=== PATIENT | female | born 1985 ===

== ENCOUNTER 2016-07-31 21:07 | Emergency (ER) | payer OTHER ==
[2016-07-31 21:46] VITALS: BP 123/73; PULSE 94; RESP 16; TEMP 99.7; O2SAT 100
[2016-07-31] MEDS ORDERED: Lactated Ringer's 1,000 ML IV STA (22:27)
[2016-07-31] MEDS ORDERED: Dextrose 5%/Lactated Ringer's 1,000 ML IV SCH (22:30)
[2016-07-31 22:44] LABS: BASO % 0.4 % (0.0-2.0); EOS % 0.1 % (0.0-4.0); LYMPH # 2.9 K/uL (1.0-4.3); LYMPH % 24.6 % (20.0-40.0); MEAN CELL VOLUME 88.9 fl (81.0-99.0); MEAN CORPUSCULAR HEMOGLOBIN 29.7 pg (27.0-31.0); MEAN CORPUSCULAR HGB CONC 33.4 g/dL (33.0-37.0); MEAN PLATELET VOLUME 10.6 fl (7.2-11.7); MONO # 0.9 K/uL (0.0-0.8); MONO % 7.7 % (0.0-10.0); NEUT # 7.8 K/uL (1.8-7.0); NEUT % 67.2 % (50.0-75.0); RED CELL DISTRIBUTION WIDTH 13.6 % (11.5-14.5); WHITE BLOOD COUNT 11.7 K/uL (4.8-10.8)
[2016-07-31 23:03] LABS: ALB/GLOB RATIO 1.2 (1.0-2.1); ALKALINE PHOSPHATASE 72 U/L (38-126); ALT/SGPT 36 U/L (9-52); AST/SGOT 31 U/L (14-36); BILIRUBIN,TOTAL 0.4 mg/dl (0.2-1.3); BLOOD UREA NITROGEN 10 mg/dl (7-17); CALCIUM 9.5 mg/dL (8.4-10.2); CARBON DIOXIDE 21 mmol/L (22-30); CHLORIDE 102 mmol/L (98-107); GFR AFRICAN-AMERICAN > 60; GLUCOSE,RANDOM 86 mg/dL (65-105); MAGNESIUM 1.9 MG/DL (1.6-2.3); PHOSPHOROUS 2.4 mg/dl (2.5-4.5); POTASSIUM 3.8 MMOL/L (3.6-5.0); SODIUM 140 mmol/l (132-148); TOTAL PROTEIN 7.9 G/DL (6.3-8.2)
[2016-07-31 23:48] LABS: THYROID STIMULATING HORMONE 3.06 mIU/ML (0.46-4.68)
--- NOTE | 2016-08-01 00:16 | ED PDOC ---
HPI:Nausea, Vomiting, Diarrhea Time Seen by Provider: 07/31/16 21:50 Chief Complaint (Nursing): ENT Problem Chief Complaint (Provider): unable to swallow Onset/Duration Of Symptoms: Sudden Onset (about an hour prior to arrival) Current Symptoms Are (Timing): Gone Now (lasted for 45 minutes) Quality Of Discomfort: denies: "Pain" Associated Symptoms: denies: Fever, Chills, Nausea, Vomiting Exacerbating Factors: None Alleviating Factors: None Additional Complaint(s): Pt had eaten dinner. Suddenly felt like she could not swallow her own saliva. However she did not have chest and she had dry mouth, not excessive secretions. She denies vomiting. Similar episode occurred about a week ago and resolved after 7 minutes. Was associated with some shortness of breath but she believes this may have been due to feeling anxious about the swallowing. Symptoms at this time have resolved. No h/o heartburn. Pt reports recent change in diet to lose weight, but not taking any supplements. Decreased calorie intake and decreased fatty foods. Past Medical History Reviewed: Historical Data, Nursing Documentation, Vital Signs Vital Signs: Last Vital Signs Temp 99.7 F H 07/31/16 21:35 Pulse 94 H 07/31/16 21:35 Resp 16 07/31/16 21:35 BP 123/73 07/31/16 21:35 Pulse Ox 100 07/31/16 21:35 - Medical History PMH: No Chronic Diseases - Surgical History Surgical History: No Surg Hx - Family History Family History: States: Other (Father with unknown heart disease (open heart at age 18)) - Social History Current smoker - smoking cessation education provided: No Alcohol: Occasional Drugs: Denies - Home Medications Home Medications: Ambulatory Orders Medication Instructions Recorded Omeprazole Magnesium [Prilosec Otc] 20 mg PO DAILY #30 tcp 08/01/16 - Allergies Allergies/Adverse Reactions: Allergies Allergy/AdvReac Type Severity Reaction Status Date / Time No Known Allergies Allergy Verified 07/31/16 21:35 Review of Systems ROS Statement: Except As Marked, All Systems Reviewed And Found Negative (and as per HPI) ENT: Negative for: Throat Pain, Throat Swelling Cardiovascular: Negative for: Chest Pain, Palpitations Respiratory: Negative for: Cough, Shortness of Breath Physical Exam - Reviewed Nursing Documentation Reviewed: Yes Vital Signs Reviewed: Yes - Physical Exam Appears: Positive for: Well, No Acute Distress Head Exam: Positive for: ATRAUMATIC, NORMOCEPHALIC Skin: Positive for: Warm, Dry Eye Exam: Positive for: EOMI, PERRL ENT: Negative for: Pharyngeal Erythema, Tonsillar Exudate Neck: Positive for: Painless ROM, Supple Cardiovascular/Chest: Positive for: Regular Rate, Rhythm, Chest Non Tender. Negative for: Murmur Respiratory: Positive for: Normal Breath Sounds. Negative for: Rales, Rhonchi, Wheezing Gastrointestinal/Abdominal: Positive for: Soft. Negative for: Tenderness Back: Positive for: Normal Inspection. Negative for: L CVA Tenderness, R CVA Tenderness Extremity: Positive for: Normal ROM. Negative for: Pedal Edema Lymphatic: Negative for: Adenopathy Neurologic/Psych: Positive for: Alert, Mood/Affect (mildly anxious). Negative for: Motor/Sensory Deficits - Laboratory Results Result Diagrams: 07/31/16 22:41 07/31/16 22:41 - ECG O2 Sat by Pulse Oximetry: 100 Disposition - Clinical Impression Clinical Impression: Difficulty swallowing - Disposition Referrals: Moses Allen MD, PhD [Staff Provider] - (CALL [facility] TOMORROW TO SETUP UP FOLLOW UP APPOINTMENT IN 1-2 WEEKS) [facility] [Outside] Disposition: Routine/Home Disposition Time: 00:18 Condition: GOOD Additional Instructions: YOU MAY HAVE ESOPHAGEAL SPASM. PLEASE CALL [facility] TOMORROW TO SETUP FOLLOW UP APPOINTMENT WITHIN A WEEK. Prescriptions: Omeprazole Magnesium [Prilosec Otc] 20 mg PO DAILY #30 tcp Instructions: Esophageal Spasm (ED)
--- NOTE | 2016-08-01 08:23 | RAD ---
HISTORY: difficulty swallowing COMPARISON: No prior. TECHNIQUE: Chest PA and lateral FINDINGS: LUNGS: No active pulmonary disease. PLEURA: No significant pleural effusion identified. No pneumothorax apparent. CARDIOVASCULAR: Normal. OSSEOUS STRUCTURES: No significant abnormalities. VISUALIZED UPPER ABDOMEN: Normal. OTHER FINDINGS: None. IMPRESSION: No radiographic evidence of acute pulmonary disease.
--- NOTE | 2016-08-02 18:17 | CARD ---
APPROVED REPORT EKG Measurement Heart [id number] <Conclusion> Normal sinus rhythm Normal ECG
== END 2016-08-01 00:30 | disposition home or self-care (01) ==
LOC: H.ER 21:07
DX: R13.10 Dysphagia, unspecified (principal)